=== PATIENT | female | born 1970 | race Caucasian/White ===

== ENCOUNTER → 2018-01-02 | Outpatient (CLI) | payer BC ==
[~2018-01-02] MED LIST: FLEXERIL 1010 MG/TAB PO; HCTZ 25MG TAB25 MG PO; NORVASC 5MG5 MG/TAB PO; SYNTHROID0.125 MG/T PO; SYNTHROID0.137 MG; TYLENOL W/COD1 UDTAB PO; VOLTAREN 75 DR75 MG PO
== END ==
LOC: COL.PUL 12:40
DX: R06.02 Shortness of breath (principal); R05 Cough
CPT/HCPCS: J7674

== ENCOUNTER → 2018-08-06 | Outpatient (CLI) | payer BC | LOC: COL.RAD 13:33 | DX: K76.0 Fatty (change of) liver, not elsewhere classified (principal); K80.20 Calculus of gallbladder without cholecystitis without obstruction | CPT/HCPCS: Q9967 ==

== ENCOUNTER 2018-08-10 07:13 | Day surgery (SDC) | payer BC ==
[2018-08-10] VITALS (8 sets, daily range): BP systolic 129–158; BP diastolic 73–91; PULSE 76–116; TEMP 97.7–98.3
[~2018-08-10] VITALS: Ht 154.9 cm; Wt 84.0 kg
[2018-08-10] MEDS ORDERED: NEXIUM 40MG40 MG PO (08:02)
[2018-08-10] MEDS ORDERED: LEVBID0.375 MG PO (08:09)
[2018-08-10] MEDS ORDERED: GLUCOTROL 5M5 MG/TAB PO (08:10)
[2018-08-10] MEDS ORDERED: GLUCOPHAGE1000 MG PO (08:10)
[2018-08-10] MEDS ORDERED: JANUVIA 100MG100 MG PO (08:11)
[2018-08-10 08:12] LABS: BASO # 0.1 (0.0-0.2); BASO % 0.7 % (0.0-2.0); EOS # 1.7 (0.0-0.7); EOS % 18.4 % (0-4.0); GRAN # 4.3 (1.4-6.5); GRAN % 48.1 % (42.2-75.2); HEMATOCRIT 43.2 % (37.0-47.0); HEMOGLOBIN 14.5 g/dl (12.5-16.0); LYMPH # 2.4 (1.2-3.4); LYMPH % 26.8 % (20.0-51.0); MEAN CELL VOLUME 83 fl (80.0-100.0); MEAN CORPUSCULAR HEMOGLOBIN 28 pg (27.0-31.0); MEAN CORPUSCULAR HGB CONC 34 g/dl (33.0-37.0); MEAN PLATELET VOLUME 10.8 fl (7.4-10.4); MONO # 0.5 (0.1-0.6); MONO % 5.8 % (1.7-9.3); PLATELET COUNT 255 K/mm3 (130-400); RED BLOOD COUNT 5.23 M/mm3 (4.10-5.30); REDCELL DISTRIBUTION WIDTH-CV 13.1 % (11.5-14.5)
[2018-08-10 08:25] LABS: ALBUMIN 4.5 gm/dL (3.5-5.0); BILIRUBIN,TOTAL 1.2 mg/dL (0.0-1.0); CALCIUM 9.7 mg/dL (8.4-10.2); CREATININE, serum 0.78 mg/dL (0.52-1.25); POTASSIUM 3.6 mmol/L (3.4-5.0); TOTAL PROTEIN 7.7 gm/dL (6.4-8.2)
[2018-08-10] MEDS ORDERED: NORCO 325 MG-51 TAB PO (09:53)
--- NOTE | 2018-08-10 10:50 | NUR ---
The patient arrived back to [facility] from the recovery room at this time. The patient appears drowsy but arouses easily to her name. The patient reports discomfort at her incision sites at this time. The patient continues to require oxygen at this time and flucuates between 91-96% on 3L. The nurse informed the patient of this instructed her that she is unable to receive more pain medication at this time due to her respiratory status. The nurse also educated the patient that she will experience pain due to the surgery and our goal is to find a managable level. Call light is within reach. Will continue to monitor the patient.
--- NOTE | 2018-08-10 11:05 | NUR ---
The patient appears to be resting quietly on the cart at this time. Respirtaions even and unlabored. The patient's vital signs appear stable. The patient continues to have oxygen in place at 3L per nasal cannula. Will continue to monitor the patient.
--- NOTE | 2018-08-10 11:20 | NUR ---
The patient appears to be resting quietly on the cart at this time. Respirations even and unlabored. The patient's oxygen was turned down to 2L of oxygen per nasal cannula. Will continue to monitor the patient.
--- NOTE | 2018-08-10 11:35 | NUR ---
The patient appears more alert at this time. The nurse assisted the patient to use her incentive spirometer 10 times at this time. The patient averaged getting the spirometer up to 1000 with use. The patient's oxygen was turned down to 1L per nasal cannula. The patient was given some ice water at this time. The patient's family was brought back to be at her bedside.
--- NOTE | 2018-08-10 12:05 | NUR ---
The patient's family is at her bedside at this time. They are assisting the patient to drink her water at this time. The patient reports increased pain in her abdomen at this time. The nurse explained to the patient and her family that will experience gas pain due to the air that is placed for surgery. Her verbalized understanding and translated to the patient what the nurse informed him of. The patient agrees to try some jello at this time. Will continue to monitor the patient.
--- NOTE | 2018-08-10 12:40 | NUR ---
The patient appears to be resting comfortably on the cart surrounded by her family at this time. The patient was weaned down to room air at this time and appears to be tolerating it well. The patient was given a PRN dose of Motrin 600 mg po and Nerinx 1 tab at this time. Call light is within reach. Will continue to monitor the patient.
--- NOTE | 2018-08-10 12:55 | NUR ---
The nurse assisted the patient to use her incentive spirometer at this time. The patient appeared to tolerate the use well with little complaints of discomfort at her incision sites.
--- NOTE | 2018-08-10 13:35 | NUR ---
The nurse assessed the patient's lung sounds at this time and they were found to be clear. The patient appeared to tolerate the deep breathing with minimal complaints of pain. The patient's family went to get lunch and the nurse will assist the patient to the bathroom when they return to her bedside.
--- NOTE | 2018-08-10 14:00 | NUR ---
The patient ambulated to the bathroom with the stand by assistance of her and the nurse. She appeared to tolerate the activity well and voided without difficulty. The nurse instructed the patient to get dressed and notify the staff when she is ready to review her discharge paperwork.
--- NOTE | 2018-08-10 14:20 | NUR ---
Discharge instructions were reviewed with the patient and her family at this time. They all verbalized understanding and have no questions for the nurse at this time. The patient's IV to her left forearm was removed and a pressure dressing was applied to the site. The patient is dressed and ready to be escorted out.
--- NOTE | 2018-08-10 14:29 | NUR ---
The patient was escorted out via wheelchair to a private vehicle by BELLA Coronel. The patient's belongings and discharge paperwork were sent with her. The patient's is present to drive her home.
== END 2018-08-10 14:29 | disposition home or self-care (01) ==
LOC: SDCO 07:13
PROVIDERS: Surgery
DX: K80.12 Calculus of gallbladder with acute and chronic cholecystitis without obstruction (principal); F41.9 Anxiety disorder, unspecified; J45.909 Unspecified asthma, uncomplicated; E11.9 Type 2 diabetes mellitus without complications; I10 Essential (primary) hypertension; E03.9 Hypothyroidism, unspecified; F32.9 Major depressive disorder, single episode, unspecified; Z79.84 Long term (current) use of oral hypoglycemic drugs; Z88.8 Allergy status to other drugs, medicaments and biological substances; Z88.5 Allergy status to narcotic agent; Z85.850 Personal history of malignant neoplasm of thyroid
CPT/HCPCS: J0690; J1100; J1170; J1885; J2405; J2704; J2710; J3010; J7120; Q9967

== ENCOUNTER → 2019-04-09 | Outpatient (CLI) | payer BC ==
[~2019-04-09] MED LIST changes: +GLUCOPHAGE1000 MG PO; +GLUCOTROL 5M5 MG/TAB PO; +JANUVIA 100MG100 MG PO; +LEVBID0.375 MG PO; +NEXIUM 40MG40 MG PO; +NORCO 325 MG-51 TAB PO
== END ==
LOC: MC.RAD 10:06
DX: Z12.31 Encounter for screening mammogram for malignant neoplasm of breast (principal)

== ENCOUNTER → 2021-08-17 | Outpatient (CLI) | payer BC | LOC: MC.RAD 09:15 | DX: Z12.31 Encounter for screening mammogram for malignant neoplasm of breast (principal) ==

== ENCOUNTER 2023-09-08 06:06 | Day surgery (SDC) | payer BC ==
[~2023-09-08] VITALS: Ht 154.9 cm; Wt 83.4 kg
[~2023-09-08 06:06] MED LIST changes: +COLESTID 1GM1 G PO; -LEVBID0.375 MG PO; -NEXIUM 40MG40 MG PO; +OZEMPIC2 MG/0.75 SQ; +Ondansetron 4 MG/2 ML VIAL IV PRN; +SYNTHROID0.112 MG/T PO; -SYNTHROID0.137 MG
[2023-09-08 06:16] VITALS: BP 145/81; PULSE 72; TEMP 97.6
[2023-09-08] MEDS ORDERED: LIPITOR20 MG PO (06:51)
[2023-09-08] MEDS ORDERED: NORVASC 10MG10 MG PO (06:52)
[2023-09-08] MEDS ORDERED: COZAAR 25MG25 MG/TAB PO (06:52)
--- NOTE | 2023-09-08 06:54 | NUR ---
The patient ambulated back to [facility] independently using a steady gait and appeared to tolerate the activity well. Vital signs obtained. Consent signed. 20G IV started in right hand with LR infusing without difficulty. Blood sugar obtained with a result of 166. Assessment completed. Home medications reconcilled. brought back to be at her bedside. Call light is within reach. Warm blanket provided. Denies any further needs at this time.
[2023-09-08] MEDS ORDERED: Lidocaine PF 2% (20 MG/ML) 5 ML VIAL ONE (07:26)
[2023-09-08 08:15] VITALS: BP 134/68; PULSE 77; TEMP 97.6
--- NOTE | 2023-09-08 08:15 | NUR ---
PATIENT RETURNS TO [facility] VIA CART. ASSIST X 2 TO CHAIR. AT BEDSIDE. VITAL SIGNS WNL. SHE DECLINES ANYTHING TO EAT OR DRINK DUE TO DROWSINESS. CALL LIGHT WITHIN REACH. WILL CONTINUE TO MONITOR.
[2023-09-08 08:30] VITALS: BP 123/75; PULSE 75
--- NOTE | 2023-09-08 08:30 | NUR ---
PATIENT IS A LITTLE MORE AWAKE. VITAL SIGNS WNL. SHE REQUESTS WATER WITH A SMALL AMOUNT OF ICE. WAITING FOR PHYSICIAN TO SPEAK WITH PATIENT. WILL CONTINUE TO MONITOR.
[2023-09-08 08:45] VITALS: BP 133/72; PULSE 68
--- NOTE | 2023-09-08 08:45 | NUR ---
PATIENT IS READY FOR DISCHARGE. VITAL SIGNS WNL. IV DISCONTINUED. DISCHARGE INSTRUCTIONS REVIEWED WITH PATIENT AND . WILL DISCHARGE ONCE PATIENT IS DRESSED.
[2023-09-08] MEDS ORDERED: LR 1,000 ML IV SCH (14:00)
== END 2023-09-08 08:55 | disposition home or self-care (01) ==
LOC: SDCO 06:06
DX: Z12.11 Encounter for screening for malignant neoplasm of colon (principal); D12.5 Benign neoplasm of sigmoid colon; K64.0 First degree hemorrhoids; G47.33 Obstructive sleep apnea (adult) (pediatric); E66.9 Obesity, unspecified; Z68.39 Body mass index [BMI] 39.0-39.9, adult; Z99.81 Dependence on supplemental oxygen; Z87.891 Personal history of nicotine dependence
CPT/HCPCS: J2704; J7120